=== PATIENT | male | born 1955 | race Caucasian/White ===

== ENCOUNTER 2016-02-27 10:26 | Emergency (ER) | payer OTHER ==
[~2016-02-27] VITALS: Ht 182.9 cm; Wt 104.5 kg
[~2016-02-27 10:26] MED LIST: ASPIRIN E.C. 8181 MG PO; ASPRIN PO; EPA FISH OIL1000 MG PO; FLEXERIL 1010 MG/TAB PO; MULTIPLE VITAMI1 CAP PO; NORCO 325 MG-51 TAB PO; PRAVACHOL 40MG40 MG PO; PROTONIX 40MG T40 MG PO; TOPROL XL 25MG25 MG PO
[2016-02-27 10:30] VITALS: TEMP 97.8
[2016-02-27] MEDS ORDERED: SYNTHROID0.05 MG/TA PO (10:33)
[2016-02-27] MEDS ORDERED: TESSALON P100 MG/CAP PO (10:33)
[2016-02-27] MEDS ORDERED: DOXYCYCLINE HY100 MG PO (10:33)
[2016-02-27] MEDS ORDERED: PROAIR HFA0.09 MG/AC IH (10:34)
[2016-02-27] MEDS ORDERED: TOPROL XL 25MG25 MG PO (10:35)
[2016-02-27] MEDS ORDERED: NORCO 325 MG-51 TAB PO (11:24)
[2016-02-27] MEDS ORDERED: FLEXERIL 1010 MG/TAB PO (11:24)
[2016-02-27 11:48] VITALS: BP 123/94; PULSE 72
== END 2016-02-27 11:49 | disposition home or self-care (01) ==
LOC: COL.ER 10:26
DX: S29.012A Strain of muscle and tendon of back wall of thorax, initial encounter (principal); I10 Essential (primary) hypertension; X50.9XXA Other and unspecified overexertion or strenuous movements or postures, initial encounter
CPT/HCPCS: A9284; J1885